=== PATIENT | female | born 1950 | race Caucasian/White ===

== ENCOUNTER 2017-10-08 11:34 | Outpatient (CLI) | payer MEDICARE, BC ==
--- NOTE | 2017-10-08 12:51 | RAD ---
PA AND LATERAL CHEST: History: Cough. FINDINGS: The heart size is borderline. The lungs are expanded without focal areas of consolidation, pneumothor ax or pleural effusions. There is no evidence pulmonary edema or acute osseous abnormalities. IMPRESSION: No radiographic evidence of acute cardiopulmonary process. POS: [facility]
== END 2017-10-08 11:35 | disposition home or self-care (01) ==
LOC: RAD 11:34
PROVIDERS: ATTEND Family Medicine
DX: R05 Cough (principal); E78.5 Hyperlipidemia, unspecified; I10 Essential (primary) hypertension; Z79.899 Other long term (current) drug therapy
CPT/HCPCS: 36415; 71046; 80053; 80061; 81001; 84443; 85025

== ENCOUNTER 2018-03-19 14:23 | Outpatient (CLI) | payer MEDICARE, BC | END 2018-03-19 14:24 | disposition home or self-care (01) | LOC: BICMAMMO 14:23 | PROVIDERS: ATTEND Family Medicine | DX: Z12.31 Encounter for screening mammogram for malignant neoplasm of breast (principal) | CPT/HCPCS: 77063; 77067 ==

== ENCOUNTER 2019-03-18 11:42 | Outpatient (CLI) | payer MEDICARE, BC ==
--- NOTE | 2019-03-18 12:07 | MMO ---
Bilateral MAMMO Bilat Screen [facility]. CLINICAL HISTORY: Patient is 68 years old and is seen for screening. The patient has no family history of breast cancer. The patient has no personal history of cancer. VIEWS: The views performed were: bilateral craniocaudal with tomosynthesis and bilateral mediolateral oblique with tomosynthesis. FILMS COMPARED: The present examination has been compared to prior imaging studies performed at [facility] on 10/27/2015, 11/04/2015, 01/03/2017 and 03/19/2018. MAMMOGRAM FINDINGS: The breasts are heterogeneously dense, which could obscure a lesion on mammography. There are stable benign appearing calcifications seen in both breasts. There are no suspicious masses, suspicious calcifications, or new areas of architectural distortion. IMPRESSION: THERE IS NO MAMMOGRAPHIC EVIDENCE OF MALIGNANCY. A ROUTINE FOLLOW-UP MAMMOGRAM IN 1 YEAR IS RECOMMENDED. THE RESULTS OF THIS EXAM WERE SENT TO THE PATIENT. ACR BI-RADS Category 2 - Benign finding MAMMOGRAPHY NOTE: 1. A negative mammogram report should not delay a biopsy if a dominant of clinically suspicious mass is present. 2. Approximately 10% to 15% of breast cancers are not detected by mammography. 3. Adenosis and dense breasts may obscure an underlying neoplasm. Reported by: HIREN MCALLISTER MD Electonically Signed: [id number]
== END 2019-03-18 11:43 | disposition home or self-care (01) ==
LOC: BICMAMMO 11:42
PROVIDERS: ATTEND Family Medicine
DX: Z12.31 Encounter for screening mammogram for malignant neoplasm of breast (principal)
CPT/HCPCS: 77063; 77067

== ENCOUNTER 2020-03-29 13:51 | Outpatient (CLI) | payer MEDICARE, BC ==
--- NOTE | 2020-03-29 14:24 | MMO ---
Bilateral MAMMO Bilat Screen [facility]. CLINICAL HISTORY: Patient is 69 years old and is seen for screening. The patient has no family history of breast cancer. The patient has no personal history of cancer. VIEWS: The views performed were: bilateral craniocaudal with tomosynthesis and bilateral mediolateral oblique with tomosynthesis. FILMS COMPARED: The present examination has been compared to prior imaging studies performed at [facility] on 11/04/2015, 01/03/2017, 03/19/2018 and 03/18/2019. This study has been interpreted with the assistance of computer-aided detection. MAMMOGRAM FINDINGS: The breasts are heterogeneously dense, which could obscure a lesion on mammography. Benign calcifications are noted bilaterally. There are no suspicious masses, suspicious calcifications, or new areas of architectural distortion. IMPRESSION: THERE IS NO MAMMOGRAPHIC EVIDENCE OF MALIGNANCY. A ROUTINE FOLLOW-UP MAMMOGRAM IN 1 YEAR IS RECOMMENDED. THE RESULTS OF THIS EXAM WERE SENT TO THE PATIENT. ACR BI-RADS Category 2 - Benign finding MAMMOGRAPHY NOTE: 1. A negative mammogram report should not delay a biopsy if a dominant of clinically suspicious mass is present. 2. Approximately 10% to 15% of breast cancers are not detected by mammography. 3. Adenosis and dense breasts may obscure an underlying neoplasm. Reported by: SUSHMA CARVAJAL MD Electonically Signed: [id number]
== END 2020-03-29 13:52 | disposition home or self-care (01) ==
LOC: BICMAMMO 13:51
PROVIDERS: ATTEND Family Medicine
DX: Z12.31 Encounter for screening mammogram for malignant neoplasm of breast (principal)
CPT/HCPCS: 77063; 77067

== ENCOUNTER 2023-10-28 09:18 | Outpatient (CLI) | payer MEDICARE, BC | END 2023-10-28 09:19 | disposition home or self-care (01) | LOC: SCSRAD 09:18 | PROVIDERS: ATTEND Family Medicine | DX: M54.2 Cervicalgia (principal); M50.30 Other cervical disc degeneration, unspecified cervical region | CPT/HCPCS: 72040 ==